=== PATIENT | male | born 1950 | race Caucasian/White ===

== ENCOUNTER 2025-07-11 12:33 | Day surgery (SDC) | payer OTHER ==
[~2025-07-11] VITALS: Ht 172.7 cm; Wt 101.2 kg
[~2025-07-11 12:33] MED LIST: ALBU90OI INH; ATOR20 PO; Balanced Salt Epinephrine Irrigation Solution 500 mL IR SCH; EUTHYROX88 MCG PO; INSULANPEN SC; JARDIANCE25 MG PO; Lisinopril-Hct1 EAC4 PO; METF500 PO; METO50ER PO; Moxifloxacin HCL 0.5 MG/0.1 ML 0.4MLSYR LEFTEYE SCH; NORVASC10 MG PO; NS 500 ML IV ONE; OZEMPIC2 MG/0.75 SQ; PHENYLEPHRINE\\TROPICAMIDE\\TETRACAINE OPHTHALMIC DILATING SOLN LEFTEYE PRN; POTA10T; Povidone-Iodine 450 DROP/30 ML Solution LEFTEYE SCH; Povidone-Iodine 450 DROP/30 ML Solution ONE; TORSE20 PO; TRAM50 PO; Tetracaine HCl/Pf 0.5% Opth Soln 4 ml ONE; Triamcinolone Inj Susp 40 MG / ML 1ML Vial INJ SCH; Triamcinolone Inj Susp 40 MG / ML 1ML Vial ONE
[2025-07-11] MEDS ORDERED: FINA5 PO (13:02)
[2025-07-11] MEDS ORDERED: PYRI100 PO (13:03)
[2025-07-11] MEDS ORDERED: METO50 PO (13:04)
[2025-07-11] MEDS ORDERED: NS 500 ML IV ONE (13:13)
--- NOTE | 2025-07-11 13:15 | NUR ---
07/11/25 1315 Phylicia WinterINE IN AT 1305 PLEDGETT IN AT 1306 PT TOLERATED WELL. SIDE RAILS UP, CALL LIGHT IN REACH.
[2025-07-11] MEDS ORDERED: Tetracaine HCl 0.5% Opth Soln 15 ml LEFTEYE ONE (13:23)
[2025-07-11] MEDS ORDERED: Midazolam HCl 1MG / ML 2ML Vial ONE (13:25)
[2025-07-11] MEDS ORDERED: FentaNYL Citrate 50 MCG/ML 2 ML Injection ONE (13:26)
== END 2025-07-11 14:12 | disposition home or self-care (01) ==
LOC: ORSCSDS 12:33
PROVIDERS: Ophthalmology
PROC: 08RK3JZ Replacement of Left Lens with Synthetic Substitute, Percutaneous Approach (ICD-10-PCS; principal; 2025-07-11 14:30)
DX: E11.36 Type 2 diabetes mellitus with diabetic cataract (principal); H25.813 Combined forms of age-related cataract, bilateral; J44.9 Chronic obstructive pulmonary disease, unspecified; Z85.118 Personal history of other malignant neoplasm of bronchus and lung; I10 Essential (primary) hypertension; E07.9 Disorder of thyroid, unspecified; E66.9 Obesity, unspecified; Z68.33 Body mass index [BMI] 33.0-33.9, adult; Z79.84 Long term (current) use of oral hypoglycemic drugs; Z79.4 Long term (current) use of insulin; Z79.899 Other long term (current) drug therapy; Z99.81 Dependence on supplemental oxygen; F17.210 Nicotine dependence, cigarettes, uncomplicated
CPT/HCPCS: 82947; J2250; J3010; J3301; J7040; V2632